=== PATIENT | female | born 1990 | race Caucasian/White ===

== ENCOUNTER 2016-08-22 20:35 | Emergency (ER) | payer MEDICAID ==
[~2016-08-22] VITALS: Ht 154.9 cm; Wt 55.2 kg
[2016-08-22 20:37] VITALS: BP 122/80
[2016-08-22] MEDS ORDERED: FAMOTIDINE 20 MG TABLET ONE (21:23)
[2016-08-22] MEDS ORDERED: FAMOTIDINE 20 MG TABLET PO ONE (21:30)
== END 2016-08-22 21:53 | disposition home or self-care (01) ==
LOC: ED 21:47
DX: F41.1 Generalized anxiety disorder (principal)
CPT/HCPCS: 93005; 99284; Q0177

== ENCOUNTER 2016-08-27 22:48 | Emergency (ER) | payer MEDICAID ==
[~2016-08-27] VITALS: Ht 154.9 cm; Wt 70.5 kg
[2016-08-27 22:57] VITALS: BP 136/89
[2016-08-27] MEDS ORDERED: L.E.T SOLUTION TP ONE (22:57)
[2016-08-27] MEDS ORDERED: LIDOCAINE 1%, 20ML ONE (22:57)
[2016-08-27] MEDS ORDERED: LIDOCAINE 1%, 20ML SQ ONE (23:30)
== END 2016-08-28 00:58 | disposition home or self-care (01) ==
LOC: ED 23:59
DX: S01.81XA Laceration without foreign body of other part of head, initial encounter (principal); S01.01XA Laceration without foreign body of scalp, initial encounter; W16.022A Fall into swimming pool striking bottom causing other injury, initial encounter; Y93.89 Activity, other specified; Y99.8 Other external cause status; Y92.34 Swimming pool (public) as the place of occurrence of the external cause
CPT/HCPCS: 12052; 70450

== ENCOUNTER 2016-09-02 11:46 | Emergency (ER) | payer MEDICAID ==
[~2016-09-02] VITALS: Ht 154.9 cm; Wt 55.9 kg
[2016-09-02 11:49] VITALS: BP 130/76
== END 2016-09-02 12:33 | disposition home or self-care (01) ==
LOC: ED 12:31
DX: S01.81XD Laceration without foreign body of other part of head, subsequent encounter (principal)
CPT/HCPCS: 99281

== ENCOUNTER 2016-09-22 18:30 | Emergency (ER) | payer MEDICAID ==
[~2016-09-22] VITALS: Ht 154.9 cm; Wt 56.8 kg
[2016-09-22 18:33] VITALS: BP 123/81
[2016-09-22] MEDS ORDERED: LIDOCAINE 1%, 20ML ONE (18:58)
[2016-09-22] MEDS ORDERED: LIDOCAINE 1%, 10ML INFIL ONE (19:00)
[2016-09-22] MEDS ORDERED: BACITRACIN ZINC OINT 500U/GM, 0.9 GM ONE (20:10)
== END 2016-09-22 20:21 | disposition home or self-care (01) ==
LOC: ED 20:14
DX: S61.212A Laceration without foreign body of right middle finger without damage to nail, initial encounter (principal); S61.411A Laceration without foreign body of right hand, initial encounter; W25.XXXA Contact with sharp glass, initial encounter; Y93.89 Activity, other specified; Y99.8 Other external cause status; Y92.89 Other specified places as the place of occurrence of the external cause
CPT/HCPCS: 12001; 13121

== ENCOUNTER 2017-07-06 15:21 | Emergency (ER) | payer MEDICAID ==
[~2017-07-06] VITALS: Ht 154.9 cm; Wt 57.2 kg
[~2017-07-06 15:21] MED LIST: ALPR0.25 PO
[2017-07-06] MEDS ORDERED: hydrOXYzine 25 MG/ML IM PRN (16:00)
[2017-07-06 16:49] VITALS: BP 145/100
== END 2017-07-06 17:22 | disposition home or self-care (01) ==
LOC: ED 17:00
DX: F41.1 Generalized anxiety disorder (principal); R06.4 Hyperventilation
CPT/HCPCS: 71046; 93005; 99284; Q0177